=== PATIENT | male | born 1980 | race Caucasian/White ===

== ENCOUNTER 2020-12-01 21:36 | Inpatient (IN) ==
[2020-12-01 22:10] LABS: Basophils % 0.2 %; Eosinophils # 0.1 K/mcL (0.0-0.6); Eosinophils % 1.3 %; Hematocrit 43.3 % (37.5-50.1); Hemoglobin 14.7 g/dL (12.9-16.9); Immature Granulocytes % 0.2 % (0-4); Lymphocytes # 3.4 K/mcL (0.6-4.6); Lymphocytes % 36.9 %; Mean Corpuscular HGB Conc 33.9 g/dL (31.6-35.5); Mean Corpuscular Hemoglobin 31.7 pg (28.0-33.3); Mean Corpuscular Volume 93.5 fL (83.0-100.0); Mean Platelet Volume 9.5 fL (9.4-12.4); Monocytes # 0.9 K/mcL (0.0-1.3); Monocytes % 9.1 %; Neutrophils # 4.9 K/mcL (1.6-8.9); Platelet Count 230 K/mcL (140-400); Red Blood Count 4.63 M/mcL (4.19-5.50); Red Cell Distribution Width 12.3 % (11.5-14.5); Segmented Neutrophils % 52.3 %; White Blood Count 9.3 K/mcL (4.3-11.1)
[2020-12-01 22:30] LABS: Acetaminophen < 10 mcg/mL (10-20); BUN/Creatinine Ratio 14 (6-26); Blood Urea Nitrogen 13 mg/dL (6-20); Calcium 9.1 mg/dL (8.6-10.3); Carbon Dioxide 25 mEq/L (23-29); Chloride 105 mEq/L (98-107); Ethanol 144 mg/dL (Less than 10); Glucose 91 mg/dL (70-105); Osmolality,Calculated 290 (280-300); Potassium 3.6 mEq/L (3.5-5.1); Salicylate < 2.5 mg/dL (15.0-30.0); Sodium 140 mEq/L (136-145); eGFR For African Americans > 60 (> 60); eGFR For Non-African Americans > 60 (> 60)
[2020-12-01 22:35] LABS: Bilirubin,Urine Negative (Negative); Blood,Urine Negative (Negative); Clarity,Urine Clear (Clear); Color,Urine Colorless (Yellow); Glucose,Urine (UA) Normal (Normal); Ketones,Urine Negative (Negative); Leukocyte Esterase,Urine Negative (Negative); Nitrite,Urine Negative (Negative); Protein,Urine Negative (Neg-Trace); Specific Gravity,Urine 1.009 (1.010-1.025); Urobilinogen,Urine Normal (Normal)
[2020-12-01 22:44] LABS: Amphetamine Screen,Urine Negative ng/mL (Cutoff=1000); Barbiturate Screen,Urine Negative ng/mL (Cutoff=200); Benzodiazepines Screen,Urine Negative ng/mL (Cutoff=200); Cannabinoid Screen,Urine Negative ng/mL (Cutoff = 50); Cocaine Screen,Urine Negative ng/mL (Cutoff= 300); Opiate Screen,Urine Negative ng/mL (Cutoff=300); Phencyclidine Screen,Urine Negative ng/mL (Cutoff=25)
[2020-12-01 23:41] LABS: Adenovirus Not Detected (Not Detect); Bordetella Pertussis Not Detected (Not Detect); Chlamydophila pneumoniae Not Detected (Not Detect); Coronavirus 229E Not Detected (Not Detect); Coronavirus HKU1 Not Detected (Not Detect); Coronavirus NL63 Not Detected (Not Detect); Coronavirus OC43 Not Detected (Not Detect); Human Metapneumovirus Not Detected (Not Detect); Human Rhinovirus/Enterovirus Not Detected (Not Detect); Influenza A Subtype 2009 H1 Not Detected (Not Detect); Influenza B Not Detected (Not Detect); Mycoplasma pneumoniae Not Detected (Not Detect); Parainfluenza Virus 1 Not Detected (Not Detect); Parainfluenza Virus 2 Not Detected (Not Detect); Parainfluenza Virus 3 Not Detected (Not Detect); Parainfluenza Virus 4 Not Detected (Not Detect); Respiratory Syncytial Virus Not Detected (Not Detect); SARS-CoV-2 Not Detected (Not Detect)
[2020-12-02] MEDS ORDERED: Ondansetron 4 MG/2 ML VIAL IVP PRN (02:50)
[2020-12-02] MEDS ORDERED: Acetaminophen 325 MG TABLET PO PRN (02:50)
[2020-12-02] MEDS ORDERED: Naloxone 0.4 MG/ML INJ IVP PRN (02:50)
[2020-12-02] MEDS ORDERED: *HR* LORazepam 2 MG/ML VIAL IVP PRN ×3 (02:51)
[2020-12-02] MEDS ORDERED: *HR* Promethazine 25 MG/ML VIAL IM PRN (02:51)
[2020-12-02] MEDS: Ringers Solution, Lactated 1,000 ML IVC SCH ×2 (03:34→12:15)
[2020-12-02 04:53] LABS: Basophils % 0.3 %; Eosinophils # 0.2 K/mcL (0.0-0.6); Eosinophils % 2.7 %; Hematocrit 42.9 % (37.5-50.1); Hemoglobin 14.5 g/dL (12.9-16.9); Immature Granulocytes % 0.1 % (0-4); Lymphocytes # 2.9 K/mcL (0.6-4.6); Lymphocytes % 41.6 %; Mean Corpuscular HGB Conc 33.8 g/dL (31.6-35.5); Mean Corpuscular Hemoglobin 32.4 pg (28.0-33.3); Mean Corpuscular Volume 95.8 fL (83.0-100.0); Mean Platelet Volume 9.7 fL (9.4-12.4); Monocytes # 0.7 K/mcL (0.0-1.3); Monocytes % 10.7 %; Neutrophils # 3.1 K/mcL (1.6-8.9); Platelet Count 206 K/mcL (140-400); Red Blood Count 4.48 M/mcL (4.19-5.50); Red Cell Distribution Width 12.2 % (11.5-14.5); Segmented Neutrophils % 44.6 %; White Blood Count 6.9 K/mcL (4.3-11.1)
[2020-12-02 05:13] LABS: BUN/Creatinine Ratio 20 (6-26); Blood Urea Nitrogen 18 mg/dL (6-20); Calcium 9.1 mg/dL (8.6-10.3); Carbon Dioxide 28 mEq/L (23-29); Chloride 106 mEq/L (98-107); Glucose 107 mg/dL (70-105); Osmolality,Calculated 294 (280-300); Potassium 3.7 mEq/L (3.5-5.1); Sodium 141 mEq/L (136-145); eGFR For African Americans > 60 (> 60); eGFR For Non-African Americans > 60 (> 60)
[2020-12-02] MEDS: Thiamine (B-1) 100 MG, Folic Acid 1 MG, MVI, adult with vitamin K 10 ML in 0.9 % Sodi... IVPB SCH (08:37)
[2020-12-02] MEDS: Nicotine 21 MG PATCH.TD24 TD SCH (08:37)
[2020-12-03] MEDS: *HR* Enoxaparin 40 MG/0.4 ML SYRINGE SQ SCH (05:16)
[2020-12-03] MEDS: Nicotine 21 MG PATCH.TD24 TD SCH (08:13)
[2020-12-03] MEDS ORDERED: *HR* LORazepam 2 MG/ML VIAL IVP ONE (13:33)
[2020-12-03] MEDS: Thiamine (B-1) 100 MG, Folic Acid 1 MG, MVI, adult with vitamin K 10 ML in 0.9 % Sodi... IVPB SCH (18:07)
[2020-12-03] MEDS: *HR* LORazepam 2 MG/ML VIAL IVP PRN (20:42)
[2020-12-04] MEDS: *HR* Enoxaparin 40 MG/0.4 ML SYRINGE SQ SCH (05:21)
[2020-12-04] MEDS: Nicotine 21 MG PATCH.TD24 TD SCH (08:01)
[2020-12-04] MEDS: *HR* LORazepam 2 MG/ML VIAL IVP PRN (08:46)
[2020-12-04 11:08] VITALS: BP 115/76
== END 2020-12-04 15:22 | disposition home or self-care (01) | DRG 775 ==
LOC: EMEROOARM 21:36 → 3BNU 21:36 → SUATTDRO 12-02 02:52 → 3BNU 12-02 03:14
PROVIDERS: ADMIT Family Medicine; ATTEND Registered Nurse

== ENCOUNTER 2020-12-04 15:27 | Inpatient (IN) ==
[2020-12-04] MEDS ORDERED: MOM Conc 10 ML UD.LIQ PO PRN (16:22)
[2020-12-04] MEDS ORDERED: *HR* LORazepam 1 MG TABLET PO PRN (16:22)
[2020-12-04] MEDS ORDERED: Mag Hydrox/Al Hydrox/Simeth 30 ML UDC PO PRN (16:22)
[2020-12-04] MEDS ORDERED: traZODone 50 MG TABLET PO PRN (16:22)
[2020-12-04] MEDS ORDERED: *HR* LORazepam 2 MG/ML VIAL IM PRN (16:22)
[2020-12-04] MEDS ORDERED: haloperidoL 5 MG TABLET PO PRN (16:22)
[2020-12-04] MEDS ORDERED: Haloperidol Lactate 5 MG/ML VIAL IM PRN (16:22)
[2020-12-04] MEDS: *HR* LORazepam 1 MG TABLET PO SCH (20:44)
[2020-12-05] MEDS: Thiamine (B-1) 100 MG TABLET PO SCH (08:42)
[2020-12-05] MEDS: Folic Acid 1 MG TABLET PO SCH (08:42)
[2020-12-05] MEDS: *HR* LORazepam 1 MG TABLET PO SCH ×3 (08:43→20:39)
[2020-12-05] MEDS: Nicotine 21 MG PATCH.TD24 TD SCH (08:50)
[2020-12-05] MEDS: hydrOXYzine pamoate 25 MG CAPSULE PO PRN (20:39)
[2020-12-06] MEDS: Nicotine 21 MG PATCH.TD24 TD SCH (09:13)
[2020-12-06] MEDS: Thiamine (B-1) 100 MG TABLET PO SCH (09:13)
[2020-12-06] MEDS: *HR* LORazepam 1 MG TABLET PO SCH ×3 (09:14→20:56)
[2020-12-06] MEDS: Folic Acid 1 MG TABLET PO SCH (09:14)
[2020-12-06] MEDS: hydrOXYzine pamoate 25 MG CAPSULE PO PRN (20:56)
[2020-12-07] MEDS: Folic Acid 1 MG TABLET PO SCH (08:31)
[2020-12-07] MEDS: Thiamine (B-1) 100 MG TABLET PO SCH (08:33)
[2020-12-07] MEDS: Nicotine 21 MG PATCH.TD24 TD SCH (08:34)
[2020-12-07] MEDS: hydrOXYzine pamoate 25 MG CAPSULE PO PRN (18:02)
[2020-12-07] MEDS: *HR* LORazepam 1 MG TABLET PO SCH (20:57)
[2020-12-08] MEDS: hydrOXYzine pamoate 25 MG CAPSULE PO PRN ×2 (07:49→16:05)
[2020-12-08] MEDS: Nicotine 21 MG PATCH.TD24 TD SCH (08:30)
[2020-12-08] MEDS: Thiamine (B-1) 100 MG TABLET PO SCH (08:31)
[2020-12-08] MEDS: *HR* LORazepam 1 MG TABLET PO SCH ×2 (08:32→20:57)
[2020-12-08] MEDS: Folic Acid 1 MG TABLET PO SCH (08:32)
[2020-12-09] MEDS: Thiamine (B-1) 100 MG TABLET PO SCH (08:23)
[2020-12-09] MEDS: *HR* LORazepam 1 MG TABLET PO SCH (08:23)
[2020-12-09] MEDS: Folic Acid 1 MG TABLET PO SCH (08:23)
[2020-12-09] MEDS: Nicotine 21 MG PATCH.TD24 TD SCH (08:24)
[2020-12-09] MEDS: hydrOXYzine pamoate 25 MG CAPSULE PO PRN ×2 (12:52→17:49)
[2020-12-09] MEDS: Ibuprofen 400 MG TABLET PO PRN (17:49)
[2020-12-09] MEDS: *HR* LORazepam 0.5 MG TABLET PO SCH (20:25)
[2020-12-10] MEDS ORDERED: *HR* LORazepam 0.5 MG TABLET PO ONE (08:08)
[2020-12-10] MEDS: Nicotine 21 MG PATCH.TD24 TD SCH (08:32)
[2020-12-10] MEDS: Folic Acid 1 MG TABLET PO SCH (08:33)
[2020-12-10] MEDS: Thiamine (B-1) 100 MG TABLET PO SCH (08:33)
[2020-12-10] MEDS: hydrOXYzine pamoate 25 MG CAPSULE PO PRN ×3 (14:13→23:00)
[2020-12-10] MEDS: Ibuprofen 400 MG TABLET PO PRN (14:13)
[2020-12-10] MEDS: *HR* LORazepam 0.5 MG TABLET PO SCH (21:24)
[2020-12-11] MEDS: Nicotine 21 MG PATCH.TD24 TD SCH (08:36)
[2020-12-11] MEDS: Folic Acid 1 MG TABLET PO SCH (08:38)
[2020-12-11] MEDS: Thiamine (B-1) 100 MG TABLET PO SCH (08:38)
[2020-12-11] MEDS: hydrOXYzine pamoate 25 MG CAPSULE PO PRN ×2 (08:39→14:20)
[2020-12-11] MEDS: Ibuprofen 800 MG TABLET PO PRN (10:16)
[2020-12-11] MEDS: *HR* LORazepam 0.5 MG TABLET PO SCH (20:07)
[2020-12-12] MEDS: hydrOXYzine pamoate 25 MG CAPSULE PO PRN ×3 (03:36→20:54)
[2020-12-12] MEDS: Ibuprofen 800 MG TABLET PO PRN (06:27)
[2020-12-12] MEDS: Nicotine 21 MG PATCH.TD24 TD SCH (08:22)
[2020-12-12] MEDS: Folic Acid 1 MG TABLET PO SCH (08:24)
[2020-12-12] MEDS: Thiamine (B-1) 100 MG TABLET PO SCH (08:24)
[2020-12-13] MEDS: Thiamine (B-1) 100 MG TABLET PO SCH (08:50)
[2020-12-13] MEDS: Folic Acid 1 MG TABLET PO SCH (08:51)
[2020-12-13] MEDS: Nicotine 21 MG PATCH.TD24 TD SCH (08:51)
[2020-12-13] MEDS: hydrOXYzine pamoate 25 MG CAPSULE PO PRN (08:51)
[2020-12-13 09:15] VITALS: BP 123/81
== END 2020-12-13 13:15 | disposition other institution (70) | DRG 751 ==
LOC: 1ANU 15:27
PROVIDERS: ADMIT Psychiatry & Neurology Psychiatry; ATTEND Psychiatry & Neurology Psychiatry